=== PATIENT | male | born 1955 | race Caucasian/White ===

== ENCOUNTER 2016-11-28 01:02 | Inpatient (IN) | payer OTHER ==
[~2016-11-28] VITALS: Ht 177.8 cm; Wt 83.1 kg
[2016-11-28 02:33] LABS: BASOPHIL % 1.6 % (0-2); PLATELET COUNT 254 x10^3mcL (130-400); RED CELL DISTRIBUTION WIDTH 11.8 % (11.5-14.5)
[2016-11-28 02:47] LABS: CALCIUM 8.7 mg/dL (8.5-10.1); CARBON DIOXIDE 27.6 mmol/L (21-32); CHLORIDE SERUM 104 mmol/L (98-107); CREATININE SERUM 1.1 mg/dL (0.7-1.3); GFR1 > 60 mL/min; GLUCOSE SERUM 152 mg/dL (74-106); POTASSIUM SERUM 3.6 mmol/L (3.5-5.1); SODIUM SERUM 141 mmol/L (136-145)
[2016-11-28 02:51] LABS: ALBUMIN 4.1 g/dL (3.4-5.0); ALKALINE PHOSPHATASE 65 U/L (46-116); ALT/SGPT 44 U/L (16-63); AMYLASE 84 U/L (25-115); AST/SGOT 25 U/L (15-37); BILIRUBIN TOTAL 1.09 mg/dL (0.20-1.00); LIPASE 255 IU/L (73-393)
[2016-11-28] MEDS ORDERED: cholesterol med (07:32)
[2016-11-28 08:08] LABS: MAGNESIUM 2.5 mg/dL (1.8-2.4); PHOSPHOROUS 2.3 mg/dL (2.5-4.9)
[2016-11-28 08:17] LABS: CHOLESTEROL/HDL RATIO 2.2
[2016-11-28 08:24] LABS: T3 TOTAL 1.29 ng/mL
[2016-11-28 08:55] VITALS: BP 145/78
[2016-11-28 08:55] LABS: FREE T4 1.17 ng/dL (0.76-1.46); FREE THYROXINE INDEX 3.6 ug/dL (1.4-4.5); T4(THYROXINE) 9.7 ug/dL (4.7-13.3)
[2016-11-28 13:47] VITALS: BP 109/72
[2016-11-28 16:28] VITALS: BP 140/77
[2016-11-28 19:13] LABS: microscopic required? YES; urine erythrocyte NEGATIVE (NEGATIVE)
[2016-11-28 19:35] LABS: AMPHETAMINE QUAL UR NONE DETECTED (NEG <=1000)
[2016-11-28 21:48] VITALS: BP 139/67
[2016-11-29 06:17] VITALS: BP 118/75
[2016-11-29 06:44] LABS: BASOPHIL % 0.1 % (0-2); PLATELET COUNT 210 x10^3mcL (130-400); RED CELL DISTRIBUTION WIDTH 12.9 % (11.5-14.5)
[2016-11-29 07:02] LABS: CALCIUM 8.1 mg/dL (8.5-10.1); CHLORIDE SERUM 107 mmol/L (98-107); CREATININE SERUM 0.8 mg/dL (0.7-1.3); GFR1 > 60 mL/min; GLUCOSE SERUM 124 mg/dL (74-106); MAGNESIUM 2.3 mg/dL (1.8-2.4); POTASSIUM SERUM 4.1 mmol/L (3.5-5.1); SODIUM SERUM 139 mmol/L (136-145)
[2016-11-29 09:50] VITALS: BP 132/79
[2016-11-29 13:14] VITALS: BP 151/88
[2016-11-29 16:39] VITALS: BP 146/89
[2016-11-29 21:11] VITALS: BP 145/85
[2016-11-30 05:55] VITALS: BP 127/82
[2016-11-30 06:30] LABS: ALBUMIN 2.9 g/dL (3.4-5.0); ALKALINE PHOSPHATASE 47 U/L (46-116); ALT/SGPT 54 U/L (16-63); AST/SGOT 32 U/L (15-37); BILIRUBIN TOTAL 1.6 mg/dL (0.20-1.00); CALCIUM 8.4 mg/dL (8.5-10.1); CARBON DIOXIDE 26.7 mmol/L (21-32); CHLORIDE SERUM 103 mmol/L (98-107); CREATININE SERUM 0.8 mg/dL (0.7-1.3); GFR1 > 60 mL/min; GLUCOSE SERUM 120 mg/dL (74-106); PHOSPHOROUS 2.1 mg/dL (2.5-4.9); POTASSIUM SERUM 3.5 mmol/L (3.5-5.1); SODIUM SERUM 138 mmol/L (136-145); TOTAL PROTEIN, SERUM 5.8 g/dL (6.4-8.2)
[2016-11-30 06:32] LABS: BASOPHIL % 0.3 % (0-2); PLATELET COUNT 194 x10^3mcL (130-400); RED CELL DISTRIBUTION WIDTH 12.7 % (11.5-14.5)
[2016-11-30 09:30] VITALS: BP 135/82
[2016-11-30 13:36] VITALS: BP 129/88
[2016-11-30 18:22] VITALS: BP 165/95
[2016-11-30 20:02] VITALS: BP 128/82
[2016-12-01 05:41] VITALS: BP 129/82
[2016-12-01 06:05] LABS: BASOPHIL % 0.5 % (0-2); PLATELET COUNT 197 x10^3mcL (130-400); RED CELL DISTRIBUTION WIDTH 12.6 % (11.5-14.5)
[2016-12-01 06:22] LABS: CALCIUM 8.1 mg/dL (8.5-10.1); CARBON DIOXIDE 26.1 mmol/L (21-32); CHLORIDE SERUM 110 mmol/L (98-107); CREATININE SERUM 0.8 mg/dL (0.7-1.3); GFR1 > 60 mL/min; GLUCOSE SERUM 106 mg/dL (74-106); MAGNESIUM 2.3 mg/dL (1.8-2.4); PHOSPHOROUS 2.4 mg/dL (2.5-4.9); POTASSIUM SERUM 3.6 mmol/L (3.5-5.1); SODIUM SERUM 145 mmol/L (136-145)
[2016-12-01 09:25] VITALS: BP 115/77
[2016-12-01 14:10] VITALS: BP 115/69
[2016-12-01 17:00] VITALS: BP 116/76
[2016-12-01 22:17] VITALS: BP 128/87
[2016-12-02 06:23] VITALS: BP 129/83
[2016-12-02 08:04] LABS: BASOPHIL % 0.4 % (0-2); PLATELET COUNT 223 x10^3mcL (130-400); RED CELL DISTRIBUTION WIDTH 12.4 % (11.5-14.5)
[2016-12-02 08:18] LABS: CALCIUM 8.3 mg/dL (8.5-10.1); CARBON DIOXIDE 27.1 mmol/L (21-32); CHLORIDE SERUM 106 mmol/L (98-107); CREATININE SERUM 0.8 mg/dL (0.7-1.3); GFR1 > 60 mL/min; GLUCOSE SERUM 108 mg/dL (74-106); MAGNESIUM 2.3 mg/dL (1.8-2.4); PHOSPHOROUS 2.9 mg/dL (2.5-4.9); POTASSIUM SERUM 3.5 mmol/L (3.5-5.1); SODIUM SERUM 140 mmol/L (136-145)
[2016-12-02] MEDS ORDERED: LIPI20 PO (08:20)
[2016-12-02 09:55] VITALS: BP 129/83
[2016-12-02 10:13] VITALS: BP 124/77
[2016-12-02] MEDS ORDERED: NOR10T PO (12:16)
[2016-12-02] MEDS ORDERED: COLACE100 MG PO (12:16)
== END 2016-12-02 13:35 | disposition home or self-care (01) | DRG 417 ==
LOC: ED 01:02 → DU 07:39 → MU 12-02 10:41
PROVIDERS: Emergency Medicine; Family Medicine; Internal Medicine; Surgery; ADMIT Family Medicine
PROC: 0FT44ZZ Resection of Gallbladder, Percutaneous Endoscopic Approach (ICD-10-PCS; principal; 2016-11-28 11:00)
PROC: 0F758DZ Dilation of Right Hepatic Duct with Intraluminal Device, Via Natural or Artificial Opening Endoscopic (ICD-10-PCS; 2016-11-29 08:00)
DX: K81.2 Acute cholecystitis with chronic cholecystitis (principal); K83.1 Obstruction of bile duct; N17.0 Acute kidney failure with tubular necrosis; E43 Unspecified severe protein-calorie malnutrition; E83.51 Hypocalcemia; E78.00 Pure hypercholesterolemia, unspecified; I16.0 Hypertensive urgency; F12.90 Cannabis use, unspecified, uncomplicated; R80.9 Proteinuria, unspecified; Z68.26 Body mass index [BMI] 26.0-26.9, adult; Z88.6 Allergy status to analgesic agent; Z88.8 Allergy status to other drugs, medicaments and biological substances
CPT/HCPCS: 43262; 83880; 84439; 94150; C1769; G0480; J0295; J0330; J0690; J1170; J1610; J1956; J2175; J2250; J2270; J2405; J2704; J2710; J3010; J3490; J7030; J7120; Q0092; Q9967